=== PATIENT | male | born 1940 | race Caucasian/White ===

== ENCOUNTER 2018-03-08 09:59 | Observation (INO) | payer MEDICARE, BC ==
[~2018-03-08] VITALS: Ht 177.8 cm; Wt 109.8 kg
[2018-03-08] VITALS (10 sets, daily range): BP systolic 127–192; BP diastolic 75–103
--- NOTE | ~2018-03-08 | H ---
[address] [address] HISTORY AND PHYSICAL Name: MARBELLA TAPIA Room: [address] Ramses Guevara#: [id number] Admission: 03/08/18 Attend Phys: Luis De La Paz MD, Discharge: 03/09/18 Date of : 40 Report #: [id number] THIS REPORT FOR: //name// Please refer to the History and Physical performed in the physician's office. By: [facility]0Medical Records Staff DAVE /LICO
[~2018-03-08 09:59] MED LIST: ALBUTEROL2.5 MG/31 INH; ASPIRIN EC81 M1 PO; AUGMENTIN 875875 MG PO; AVODART0.5 MG PO; CARVEDILOL12.5 MG PO; COZAAR 50 MG TA50 M1 PO; COZAAR 50 MG TA50 MG PO; DOXYCYCLINE 10100 MG PO; ELIQUIS5 MG PO; FLONASE 0.05%50 MCG NASAL; FLOVENT HFA 2220 MC1 INH; LASIX 20 MG TAB20 MG PO; LOPRESSOR50 PO; MINIPRIN81 MG PO; PACERONE 200 M200 M1 PO; PLAVIX 75 MG TA75 M1 PO; PROAIR HFA8.5 GM INH; ROBAXIN 750 MG750 M1 PO; SPIRIVA INH; TAMSULOSIN HCL0.4 M1 PO; TAMSULOSIN HCL0.4 MG PO; TOPROL XL50 MG PO; VICODIN 5-3001 EACH PO; ZOCOR40 MG PO
[2018-03-08 10:42] LABS: HEMATOCRIT 41.7 % (42.0-52.0); HEMOGLOBIN 14.2 gm/dL (14.0-18.0); MCH 32.8 pg (26.0-34.0); MCHC 34.1 g/dL (28.0-37.0); MCV 96.1 fL (80.0-100.0); MPV 9.3 fl. (7.2-11.1); RBC 4.35 mil/uL (4.50-6.00); RDW-CV 13.9 % (10.5-14.5); WBC 7.4 thou/uL (4.0-11.0)
[2018-03-08 10:52] LABS: APTT 25.7 Seconds (25.0-31.3); INR 1.1; PROTIME 10.6 Seconds (9.20-11.50)
[2018-03-08 11:02] LABS: ANION GAP 7 mmol/L (7-16); BUN 13 mg/dL (7-18); CALCIUM 8.9 mg/dL (8.5-10.1); CHLORIDE 109 mmol/L (98-107); CO2 26 mmol/L (21-32); CREATININE 1.3 mg/dL (0.6-1.3); GLUCOSE 94 mg/dL (70-99); POTASSIUM 4.4 mmol/L (3.5-5.1); SODIUM 142 mmol/L (136-145)
[2018-03-08 11:08] LABS: ALBUMIN 3.7 g/dL (3.4-5.0); ALKALINE PHOSPHATASE 65 U/L (46-116); CHOLESTEROL 106 mg/dL (<200); HDL CHOLESTEROL 45 mg/dL (>40); LDL CHOLESTEROL 40 mg/dL (<100); SGOT 32 U/L (15-37); SGPT 43 U/L (30-65); TC:HDL 2.4 Ratio (Not establshd); TOTAL BILIRUBIN 0.9 mg/dL (<0.1-1.0); TOTAL PROTEIN 6.9 g/dL (6.4-8.2); TRIGLYCERIDE 108 mg/dL (<150); VLDL 22 mg/dL (<40)
[2018-03-08 11:11] LABS: SERUM ASSESSMENT Clear
--- NOTE | 2018-03-08 17:30 | EKG ---
[place] [address] ELECTROCARDIOGRAM REPORT Name: MARBELLA TAPIA Room: [facility]#: [id number] Admission: 03/08/18 Attend Phys: Luis De La Paz MD, Discharge: Date of : 40 Report #: [id number] THIS REPORT FOR: //name// [facility] Test Date: 2018-03-08 Test Time: 10:52:26 Pat Name: MARBELLA WILLIE Department: Room: Gender: Barker Peeler: SANDHYA : 1940 Requested By: Luis De La Paz Order Number: [id number] Osvaldo MD: Sanchez Zeng Measurements Intervals [place] Rate: 82 P: ID: QRS: 71 QRSD: 112 T: 50 QT: 428 QTc: 500 Interpretive Statements Atrial fibrillation Low voltage, precordial leads Borderline prolonged QT interval No previous ECG available for comparison Electronically Signed On 03-08-2018 17:29:55 CDT by Sanchez Zeng [email or web address] <ELECTRONICALLY SIGNED> By: Sanchez Zeng MD, [facility] 03/08/18 1729 1052 1052 Sanchez Zeng MD, FACC /EPI
[2018-03-09] VITALS (17 sets, daily range): BP systolic 102–140; BP diastolic 51–81
[2018-03-09 04:42] LABS: HEMATOCRIT 40.4 % (42.0-52.0); HEMOGLOBIN 13.8 gm/dL (14.0-18.0); MCHC 34.2 g/dL (28.0-37.0); MCV 96.6 fL (80.0-100.0); MPV 9.2 fl. (7.2-11.1); RBC 4.19 mil/uL (4.50-6.00); WBC 8.4 thou/uL (4.0-11.0)
[2018-03-09 05:25] LABS: ALBUMIN 3.3 g/dL (3.4-5.0); CALCIUM 8.9 mg/dL (8.5-10.1); CREATININE 1.3 mg/dL (0.6-1.3); POTASSIUM 5.1 mmol/L (3.5-5.1); TOTAL PROTEIN 5.9 g/dL (6.4-8.2); TROPONIN-I LEVEL 0.17 ng/mL (<0.06)
[2018-03-09] MEDS ORDERED: EFFIENT10 MG PO (10:33)
[2018-03-09] MEDS ORDERED: NITROGLYCERIN0.4 MG SUBLING (10:34)
[2018-03-09] MEDS ORDERED: CHILDREN'S ASPI81 M1 PO (10:49)
--- NOTE | 2018-03-09 16:11 | D ---
[address] [address] DISCHARGE SUMMARY Name: MARBELLA TAPIA Room: [address] Rams[place] Guevara#: [id number] Admission: 03/08/18 Attend Phys: Luis De La Paz MD, Discharge: 03/09/18 Date of : 40 Report #: [id number] THIS REPORT FOR: //name// CC: Luis Flores [place] DATE OF SERVICE: 03/09/2018 The patient is a pleasant 77-year-old male with known coronary artery disease, prior myocardial infarction, ischemic cardiomyopathy and an ICD in place. Approximately 6-8 weeks ago, he had a discharge from his defibrillator without particular provocation. He has noted increased dyspnea with exertion since that time, but no classic chest discomfort. He has underlying hypertension, hyperlipoproteinemia, weight excess and obstructive sleep apnea. In the context of the recent discharge and concerned about ischemic provocation, the patient underwent cardiac catheterization on 03/08/2018, and that study demonstrated 80% ostial left main coronary narrowing with 80% narrowing of the mid portion of the prominent, though nondominant circumflex. Right coronary artery had 50% proximal narrowing. Left ventricular function was moderately impaired with an estimated ejection fraction of 40% with apical akinesis. Given this data, and after explaining the options to the patient, we proceeded with percutaneous coronary intervention, deploying 1 drug-eluting stent in the mid circumflex and 2 at the ostial and proximal portion of the left main coronary artery with 0 and 10% residual narrowing at the respective sites following stent deployment. The patient did well post procedurally. Troponin ailyn inconsequentially to 0.17. Laboratory on 03/09, revealed sodium of 141, potassium of 5.1, BUN 13, creatinine 1.3, glucose 96. Hemoglobin 13.8, white blood cell count 8400 with 164,000 platelets. The patient ambulated in the hallways without difficulty. He was discharged to home in stable condition on 03/09/2018, on the following medications: Amiodarone 200 mg daily, aspirin 81 mg daily, fluticasone 1 spray in each nares daily, losartan 50 mg daily, metoprolol tartrate 50 mg daily, prasugrel or Effient 10 mg daily with a 60 mg loading dose given periprocedurally, simvastatin 40 mg at bedtime, and tamsulosin 0.4 mg daily. I will plan to see him next week in the office for followup status post stenting of the proximal left [place] [address] DISCHARGE SUMMARY Name: WILLIEBLANCOMARBELLA Olamide Room: [address] Rams[place] Guevara#: [id number] Admission: 03/08/18 Attend Phys: Luis De La Paz MD, Discharge: 03/09/18 Date of : 40 Report #: [id number] Thus, the patient is discharged to home on the above described medications with followup as iterated above. <ELECTRONICALLY SIGNED> By: Luis De La Paz MD, [facility] 03/09/18 1611 0932 1509John Fany De La Paz MD, [facility] /nt
--- NOTE | 2018-03-09 17:36 | EKG ---
[place] [address] ELECTROCARDIOGRAM REPORT Name: MARBELLA TAPIA Room: [address]#: [id number] Admission: 03/08/18 Attend Phys: Luis De La Paz MD, Discharge: 03/09/18 Date of : 40 Report #: [id number] THIS REPORT FOR: //name// [facility] Test Date: 2018-03-09 Test Time: 08:19:37 Pat Name: MARBELLA TAPIA Department: Room: [address] Gender: M Crisis Clinician: : 1940 Requested By: Luis De La Paz Order Number: [id number] Osvaldo MD: Luis De La Paz Measurements Intervals [place] Rate: 77 P: -60 CO: 157 QRS: 79 QRSD: 123 T: 58 QT: 457 QTc: 518 Interpretive Statements Sinus rhythm with frequent pac's Right bundle branch block. incomeplete Compared to ECG 03/08/2018 10:52:26 Right bundle-branch block now present Atrial fibrillation no longer present Electronically Signed On 03-09-2018 17:35:52 CDT by Luis De La Paz [email or web address] <ELECTRONICALLY SIGNED> By: Luis De La Paz MD, [facility] 03/09/18 1735 8 8 Luis De La Paz MD, [facility] /EPI
--- NOTE | 2018-03-15 16:39 | CARD ---
[address] [address] CARDIAC CATH REPORT Name: MARBELLA TAPIA Room: [address] Ramses Guevara#: [id number] Admission: 03/08/18 Attend Phys: Luis De La Paz MD, Discharge: 03/09/18 Date of : 40 Report #: [id number] THIS REPORT FOR: //name// APPROVED REPORT Study performed: 03/08/2018 15:36:17 Patient Details Patient Status: Out-Patient Room #: 001 The patient is a 77 year-old male Event Personnel Luis De La Paz Saturation Diver, Melanie Norris RN Financial Institution Vice President, Marisa Wheatley RTR Scrub, Janett Morton Monitor, Holly Terrazas RTR Monitor Procedures Performed Art Access - R femoral artery* Left Heart Cath w/or w/o Coronaries [id number] [facility] w/wo Plasty Single CIRC [id number] [address] [address] w/wo Plasty Single Left Main [id number] , Left Ventriculogram Indication Arrhythmia, Dyspnea Risk Factors Hypercholesterolemia, Hypertension Previous Procedures/Diagnoses Previous PCI, Previous CA Admission/Lab Medications/Medications given during procedure Aspirin, Platelet Aff. Inhib. Procedure Narrative The patient was brought electively to the Cardiac Catheterization Laboratory and was prepped and draped in a sterile manner. The right femoral was infiltrated with 2% Lidocaine subcutaneous anesthesia. A [place] 6 FR sheath was inserted into the right femoral artery. Coronary angiography was performed using coronary diagnostic catheters. The right coronary system was accessed and visualized with a Diagnostic 6fr JR 4 catheter. The left coronary system was accessed and visualized with a Diagnostic JL 5 5fr catheter. The left ventricle was accessed and visualized with a Diagnostic 6fr Pigtail catheter. Left ventricular/[place] [address] CARDIAC CATH REPORT Name: MARBELLA TAPIA Room: [address]#: [id number] Admission: 03/08/18 Attend Phys: Luis De La Paz MD, Discharge: 03/09/18 Date of : 40 Report #: [id number] catheter pullback. Left ventriculogram was performed in ROBERTS projection. Pre-demployment femoral angiogram was performed . Closure device was deployed with a 6 Fr Angioseal STS 6Fr. The patient tolerated the procedure well and there were no complications associated with the procedure. There was no hematoma. Intraoperative Conscious Sedation Sedation start time: 15:50 Case end Time: 17:57 Fentanyl 125 mcg Versed 5 mg Fluoro Time: 29.0 minutes Dose: DAP 322573 cGycm2 154 mGy Contrast Type and Amount: Visipaque 600 ml Hemodynamics The aortic pressure is 180/87 mmHg with a mean of mmHg. The left ventricular pressure is 164/7 mmHg with a mean of mmHg. The left ventricular end diastolic pressure is 16 mmHg. There was no gradient across the aortic valve upon pullback. PCI Technique Lesion Percutaneous coronary intervention was performed on the mid circumflex artery segment. The lesion stenosis prior to intervention was 90% with TYRELL 3 flow. A 6fr JL 3.5 SH Guide Catheter was used to engage the LCA ostium. A IG: ProwaterFlex 180CM Interventional Guidewire was used to cross the lesion. BALLOON DILATION A Balloon catheter Trek RX 2.5 X 12 was inserted and inflated up to 10.00atm for 9seconds. STENT DEPLOYMENT A drug-eluting stent Xience Alpine RX 2.5X15 was inserted and inflated up to 10.00atm for 8seconds. Additional Inflation: 12.00atm for 7seconds. Final angiography reveals 0 % stenosis with TYRELL 3 flow. PCI Technique Lesion 2 Percutaneous Coronary Intervention was performed on the proximal left main coronary artery. The lesion stenosis prior to intervention was 80% with TYRELL 3 flow. Stent Deployment A drug-eluting stent Xience Alpine RX 3.5X8 [place] [address] CARDIAC CATH REPORT Name: MARBELLA TAPIA Room: [address] Ramses M.RAnaid#: [id number] Admission: 03/08/18 Attend Phys: Luis De La Paz MD, Discharge: 03/09/18 Date of : 40 Report #: [id number] up to 14.00atm for 9seconds. Additional Inflation: 15.00atm for 5seconds. Post Stent Deployment Balloon Dilation A Balloon catheter NC Trek RX 3.25X8 was inserted and inflated up to 12.00atm for 8seconds. Additional Inflation: 16.00atm for 7seconds. Final angiography reveals 10 % stenosis with TYRELL 3 flow. PCI Technique Lesion 3 Percutaneous Coronary Intervention was performed on the left main coronary artery. Stent Deployment A drug-eluting stent Xience Alpine RX 3.5X8 was inserted and inflated up to 12atm for 6seconds. Post Stent Deployment Balloon Dilation A Balloon catheter NC Trek RX 3.5 X 8 was inserted and inflated up to 16atm for 8seconds. Additional Inflation: 16atm for 5seconds. Additional Inflation: 17atm for 6seconds. Conclusion #1 significant coronary artery disease characterized by the following: A 80% proximal left main coronary artery stenosis B 50% mid LAD narrowing C prominent though nondominant circumflex with 90% mid vessel stenosis D 50% proximal narrowing of the prominent dominant right coronary artery #2 moderate impairment in global left ventricular systolic function, estimated ejection fraction 35% with apical akinesis #3 moderate systemic systolic hypertension with mild elevation of left ventricular end-diastolic pressure at rest #4 successful percutaneous coronary intervention with deployment of a drug-eluting stent at site of 90% mid circumflex stenosis with 0% residual narrowing and TYRELL-3 [place] [address] CARDIAC CATH REPORT Name: MARBELLA TAPIA Room: [address] Ramses Guevara#: [id number] Admission: 03/08/18 Attend Phys: Luis De La Paz MD, Discharge: 03/09/18 Date of : 40 Report #: [id number] #5 successful percutaneous coronary intervention with deployment of 2 drug-eluting stents at the site of 80% proximal left main coronary stenosis with 10% residual narrowing and TYRELL-3 flow to the distal circulation Recommendations Cardiac Risk Reduction Program Aggressive Medical Therapy Medications Administered Aspirin (any) Prasugrel Diagnostic Cath Approved by: Luis De La Paz MD Date/Time: 03/15/2018 16:36:42 <ELECTRONICALLY SIGNED> By: Luis De La Paz MD, [facility] 03/15/18 1639 1639 1639Luis De La Paz MD, FACC /INF
[2018-06-22] MEDS ORDERED: TOPROL XL25 MG PO (14:12)
[2018-06-22] MEDS ORDERED: BEVESPI AEROS10.7 GM INH (14:16)
[2018-06-22] MEDS ORDERED: ALBUTEROL2.5 MG/31 INH (14:17)
== END 2018-03-09 14:40 | disposition home or self-care (01) ==
LOC: M.CL 09:59 → M.ICU 18:14 → M.TBA-ER 18:14 → M.ICU 18:14
PROVIDERS: ADMIT Internal Medicine
DX: I25.10 Atherosclerotic heart disease of native coronary artery without angina pectoris (principal); I25.5 Ischemic cardiomyopathy; I11.0 Hypertensive heart disease with heart failure; I50.22 Chronic systolic (congestive) heart failure; I48.0 Paroxysmal atrial fibrillation; I47.2 Ventricular tachycardia; E78.5 Hyperlipidemia, unspecified; J43.9 Emphysema, unspecified; E78.00 Pure hypercholesterolemia, unspecified; G47.33 Obstructive sleep apnea (adult) (pediatric); I25.2 Old myocardial infarction; Z99.89 Dependence on other enabling machines and devices; Z87.891 Personal history of nicotine dependence; Z95.810 Presence of automatic (implantable) cardiac defibrillator; Z82.49 Family history of ischemic heart disease and other diseases of the circulatory system

== ENCOUNTER → 2018-06-27 | Outpatient (CLI) | payer MEDICARE, BC ==
[2018-06-27] VITALS (9 sets, daily range): BP systolic 106–142; BP diastolic 62–91
[~2018-06-27] VITALS: Ht 177.8 cm; Wt 103.0 kg
[~2018-06-27] MED LIST changes: +BEVESPI AEROS10.7 GM INH; +CHILDREN'S ASPI81 M1 PO; +EFFIENT10 MG PO; +NITROGLYCERIN0.4 MG SUBLING; +TOPROL XL25 MG PO
[2018-06-27 08:17] LABS: HEMATOCRIT 42.4 % (42.0-52.0); HEMOGLOBIN 14.6 gm/dL (14.0-18.0); MCH 32.8 pg (26.0-34.0); MCHC 34.5 g/dL (28.0-37.0); MPV 8.8 fl. (7.2-11.1); RBC 4.46 mil/uL (4.50-6.00); RDW-CV 17.1 % (10.5-14.5); WBC 7.9 thou/uL (4.0-11.0)
[2018-06-27 08:30] LABS: ANION GAP 9 mmol/L (7-16); BUN 14 mg/dL (7-18); CALCIUM 9.1 mg/dL (8.5-10.1); CHLORIDE 106 mmol/L (98-107); CO2 25 mmol/L (21-32); CREATININE 1.3 mg/dL (0.6-1.3); GLUCOSE 104 mg/dL (70-99); POTASSIUM 4.1 mmol/L (3.5-5.1); SODIUM 140 mmol/L (136-145)
[2018-06-27 08:33] LABS: APTT 26.6 Seconds (25.0-31.3); PROTIME 10.7 Seconds (9.20-11.50)
[2018-06-27 08:35] LABS: ALBUMIN 3.7 g/dL (3.4-5.0); ALKALINE PHOSPHATASE 76 U/L (46-116); CHOLESTEROL 169 mg/dL (<200); HDL CHOLESTEROL 41 mg/dL (>40); LDL CHOLESTEROL 89 mg/dL (<100); SGOT 24 U/L (15-37); SGPT 26 U/L (30-65); TC:HDL 4.1 Ratio (Not establshd); TOTAL BILIRUBIN 0.8 mg/dL (<0.1-1.0); TOTAL PROTEIN 6.9 g/dL (6.4-8.2); TRIGLYCERIDE 196 mg/dL (<150); VLDL 39 mg/dL (<40)
[2018-06-27 08:36] LABS: SERUM ASSESSMENT Clear
--- NOTE | 2018-06-27 16:39 | EKG ---
[place] [address] ELECTROCARDIOGRAM REPORT Name: MARBELLA TAPIA Room: [address]#: [id number] Admission: 06/27/18 Attend Phys: Luis De La Paz MD, Discharge: Date of : 40 Report #: [id number] THIS REPORT FOR: //name// [facility] Test Date: 2018-06-27 Test Time: 08:10:02 Pat Name: MARBELLA TAPIA Department: Room: Gender: Ambulance Officer: [facility] : 1940 Requested By: Luis De La Paz Order Number: [id number] Osvaldo MD: Luis De La Paz Measurements Intervals [place] Rate: 75 P: 9 MS: 197 QRS: 67 QRSD: 117 T: 65 QT: 425 QTc: 475 Interpretive Statements Sinus rhythm Atrial premature complex Nonspecific intraventricular conduction delay Compared to ECG 03/09/2018 08:19:37 Atrial premature complex(es) now present Intraventricular conduction delay now present Right bundle-branch block no longer present Electronically Signed On 06-27-2018 16:38:55 SHAFT TENDER by Luis De La Paz [email or web address] <ELECTRONICALLY SIGNED> By: Luis De La Paz MD, FACC 06/27/18 1638 0810 0810 Luis De La Paz MD, [facility] /EPI
--- NOTE | 2018-06-28 14:25 | CARD ---
[address] [address] CARDIAC CATH REPORT Name: MARBELLA TAPIA Room: [facility] ANGUS Guevara#: [id number] Admission: 06/27/18 Attend Phys: Luis De La Paz MD, Discharge: Date of : 40 Report #: [id number] THIS REPORT FOR: //name// APPROVED REPORT Study performed: 06/27/2018 07:39:26 Patient Details Patient Status: Out-Patient Room #: The patient is a 77 year-old male Event Personnel Luis De La Paz Costume Rental Clerk, Rosemarie Montes De Oca RN French Polisher, Yefri Moseley (R) Monitor, Michael Patiño Scrub Procedures Performed Left Heart Cath w/or w/o Coronaries Indication Chest pain Risk Factors Hypercholesterolemia, Hypertension Previous Procedures/Diagnoses Previous PCI Procedure Narrative The patient was brought electively to the Cardiac Catheterization Laboratory and was prepped and draped in a sterile manner. The right femoral was infiltrated with 2% Lidocaine subcutaneous anesthesia. A Sl[place] 6 FR sheath was inserted into the right femoral artery. Coronary angiography was performed using coronary diagnostic catheters. The right coronary system was accessed and visualized with a Diagnostic JR4 catheter. The left coronary system was accessed and visualized with a Diagnostic JL 4 catheter. The left ventricle was accessed and visualized with a Diagnostic Straight Pigtail catheter. Left ventricular/Aortic Valve gradient assessed via catheter pullback. Left ventriculogram was performed in ROBERTS projection. Closure device was deployed with a Fr Mynx 6Fr/7Fr. The patient tolerated the procedure well and there were no complications associated with the procedure. There was no hematoma[place] [address] CARDIAC CATH REPORT Name: MARBELLA TAPIA Room: [facility]#: [id number] Admission: 06/27/18 Attend Phys: Luis De La Paz MD, Discharge: Date of : 40 Report #: [id number] Sedation start time: 10:06 Case end Time: 10:34 Fentanyl 25 mcg Versed 1.0 mg Fluoro Time: 3.4 minutes Dose: DAP 16931 cGycm2 792 mGy Contrast Type and Amount: Visipaque 100 ml Diagnostic Cath Left Main Widely patent left main coronary stent with 0% narrowing LAD 30% proximal and mid vessel narrowing, the latter just prior to a prominent second septal security supervisor with 30% narrowing just distal to that septal security supervisor Circumflex 40% proximal and mid vessel narrowing Right Coronary Large dominant vessel with tortuosity and 40% proximal narrowing Left Ventriculography The left ventricle is normal in size with contractility. The left ventricular ejection fraction is estimated to be 45%. Left ventricular wall motion abnormalities are present. There is no mitral insufficiency. Apical akinesis is noted on left ventriculography Hemodynamics The aortic pressure is 135/69 mmHg with a mean of 96 mmHg. The left ventricular pressure is 125/1 mmHg with a mean of mmHg. The left ventricular end diastolic pressure is 10 mmHg. There was no gradient across the aortic valve upon pullback. Conclusion #1 coronary artery disease characterized by the following: A widely patent left main coronary artery stent B 30% proximal and mid LAD narrowing with 30% narrowing just beyond the second septal security supervisor C nondominant circumflex with 40% proximal and mid vessel narrowing with widely patent stents at 2 sites D dominant right coronary artery with tortuosity and 40% proximal narrowing #2 normal left[place] [address] CARDIAC CATH REPORT Name: MARBELLA TAPIA Room: [facility]#: [id number] Admission: 06/27/18 Attend Phys: Luis De La Paz MD, Discharge: Date of : 40 Report #: [id number] #3 mild impairment in global left ventricular systolic function, estimated ejection fraction being 45% with apical akinesis noted Recommendations Cardiac Risk Reduction Program Aggressive Medical Therapy Diagnostic Cath Approved by: Luis De La Paz MD Date/Time: 06/28/2018 14:24:38 <ELECTRONICALLY SIGNED> By: Luis De La Paz MD, [facility] 06/28/18 1425 1425 1425John Fany De La Paz MD, FACC /INF
== END | disposition home or self-care (01) ==
LOC: M.CL 06:28 → M.TBA-CV 10:50 → M.CL 10:50
PROVIDERS: Internal Medicine
DX: I25.10 Atherosclerotic heart disease of native coronary artery without angina pectoris (principal); I10 Essential (primary) hypertension; E78.00 Pure hypercholesterolemia, unspecified; E78.5 Hyperlipidemia, unspecified; I25.2 Old myocardial infarction; J44.9 Chronic obstructive pulmonary disease, unspecified; G47.33 Obstructive sleep apnea (adult) (pediatric); I48.91 Unspecified atrial fibrillation; Z95.5 Presence of coronary angioplasty implant and graft; Z90.49 Acquired absence of other specified parts of digestive tract; Z98.890 Other specified postprocedural states; Z79.899 Other long term (current) drug therapy; Z87.891 Personal history of nicotine dependence; Z88.8 Allergy status to other drugs, medicaments and biological substances; Z79.82 Long term (current) use of aspirin; Z79.01 Long term (current) use of anticoagulants

== ENCOUNTER → 2019-05-09 | Outpatient (CLI) | payer MEDICARE, BC ==
[~2019-05-09] VITALS: Ht 177.8 cm; Wt 103.6 kg
[2019-05-09] VITALS (7 sets, daily range): BP systolic 123–157; BP diastolic 83–107
[~2019-05-09] MED LIST changes: +ASPIR 8181 MG PO; +COZAAR 25 MG TA25 M1 PO; +DORYX MPC120 MG PO; +FLOMAX0.4 MG PO; +IPRAT-ALBUT 0.5-3 ML INH; +PREDNISONE 20 M20 MG PO; +PROAIR RESPICL90 MCG INH; +STIOLTO RESPIMAT4 GM INH
[2019-05-09 11:10] LABS: HEMATOCRIT 45.4 % (42.0-52.0); HEMOGLOBIN 15.8 gm/dL (14.0-18.0); MCH 33.5 pg (26.0-34.0); MCHC 34.7 g/dL (28.0-37.0); MCV 96.6 fL (80.0-100.0); MPV 8.7 fl. (7.2-11.1); RBC 4.7 mil/uL (4.50-6.00); RDW-CV 15.1 % (10.5-14.5); WBC 8.6 thou/uL (4.0-11.0)
[2019-05-09 11:17] LABS: APTT 25.7 Seconds (25.0-31.3); PROTIME 10.7 Seconds (9.20-11.50)
[2019-05-09 11:18] LABS: ANION GAP 9 mmol/L (7-16); BUN 16 mg/dL (7-18); CALCIUM 8.9 mg/dL (8.5-10.1); CHLORIDE 106 mmol/L (98-107); CO2 27 mmol/L (21-32); CREATININE 1.5 mg/dL (0.6-1.3); GLUCOSE 98 mg/dL (70-99); POTASSIUM 3.9 mmol/L (3.5-5.1); SODIUM 142 mmol/L (136-145)
[2019-05-09 11:29] LABS: ALBUMIN 3.8 g/dL (3.4-5.0); ALKALINE PHOSPHATASE 100 U/L (46-116); CHOLESTEROL 161 mg/dL (<200); HDL CHOLESTEROL 46 mg/dL (>40); LDL CHOLESTEROL 87 mg/dL (<100); SGOT 23 U/L (15-37); SGPT 33 U/L (30-65); TC:HDL 3.5 Ratio (Not establshd); TOTAL BILIRUBIN 0.9 mg/dL (<0.1-1.0); TRIGLYCERIDE 142 mg/dL (<150); VLDL 28 mg/dL (<40)
[2019-05-09 11:30] LABS: SERUM ASSESSMENT Clear
--- NOTE | 2019-05-09 16:55 | EKG ---
[place] [address] ELECTROCARDIOGRAM REPORT Name: MARBELLA TAPIA Room: [facility]#: [id number] Admission: 05/09/19 Attend Phys: Luis De La Paz MD, Discharge: Date of : 40 Report #: [id number] THIS REPORT FOR: //name// [facility] Test Date: 2019-05-09 Test Time: 11:14:38 Pat Name: MARBELLA TAPIA Department: Room: Gender: Marine Steam Fitter: : 1940 Requested By: Sanchez Zeng Order Number: [id number] Osvaldo MD: Sanchez Zeng Measurements Intervals [place] Rate: 91 P: -16 AK: 177 QRS: 74 QRSD: 110 T: 56 QT: 391 QTc: 482 Interpretive Statements Sinus rhythm Atrial premature complexes Abnormal R-wave progression, early transition Compared to ECG 06/27/2018 08:10:02 Intraventricular conduction delay no longer present Electronically Signed On 05-09-2019 16:55:14 CDT by Sanchez Zeng [email or web address] <ELECTRONICALLY SIGNED> By: Sanchez Zeng MD, FACC 05/09/19 7968 1114 1114 Sanchez Zeng MD, [facility] /EPI
--- NOTE | 2019-05-10 13:19 | CARD ---
[address] [address] CARDIAC CATH REPORT Name: WILLIEMARBELLASTACIA SMART Room: [facility] Paola#: [id number] Admission: 05/09/19 Attend Phys: Luis De La Paz MD, Discharge: Date of : 40 Report #: [id number] THIS REPORT FOR: //name// APPROVED REPORT Study performed: 05/09/2019 13:50:03 Patient Details The patient is a 78 year-old male Event Personnel Luis De La Paz Cnc Wood Lathe Operator, Rosemarie Montes De Oca RN Mask Designer, Carlos Araujo BUSINESS CONSULTANT Scrub, Kelly Mcdonald RTR Monitor Procedures Performed Art Access - R femoral artery Left Heart Cath w/or w/o Coronaries C Hemostasis w/ Mynx Indication Dyspnea, Chest pain Risk Factors Hypercholesterolemia, Hypertension Previous Procedures/Diagnoses Previous PCI, Previous DC Procedure Narrative The patient was brought electively to the Cardiac Catheterization Laboratory and was prepped and draped in a sterile manner. The right femoral was infiltrated with 2% Lidocaine subcutaneous anesthesia. A [place] 6 FR sheath was inserted into the right femoral artery. Coronary angiography was performed using coronary diagnostic catheters. The right coronary system was accessed and visualized with a JR 4 6F catheter. The left coronary system was accessed and visualized with a JL 4 6F catheter. The left ventricle was accessed and visualized with a PIG 6F catheter. Left ventricular/Aortic Valve gradient assessed via catheter pullback. Left ventriculogram was performed in ROBERTS projection. Pre-demployment femoral angiogram was performed . Closure device was deployed with a Fr MynxGrip 6/7F. The patient tolerated the procedure well and there were no complications associated with the procedure. Intraoperative Conscious Sedation Sedation start time: 4 Case end Time: [place] [address] CARDIAC CATH REPORT Name: MARBELLA TAPIA Room: [facility]#: [id number] Admission: 05/09/19 Attend Phys: Luis De La Paz MD, Discharge: Date of : 40 Report #: [id number] 1522 Fentanyl 25 mcg Versed 1 mg Dose: 1083 mGy Contrast Type and Amount: Visipaque 125 ml Diagnostic Cath Left Main 0% narrowing with widely patent proximal stent LAD 30% proximal 50% tubular mid LAD narrowing Circumflex 30% proximal and mid vessel narrowing with widely patent mid vessel stent Right Coronary Large dominant vessel with 30% proximal narrowing Left Ventriculography The left ventricle is normal in size with contractility. The left ventricular ejection fraction is estimated to be 45%. Left ventricular wall motion abnormalities are present. There is no mitral insufficiency. Apical akinesis is noted Hemodynamics The aortic pressure is 120/52 mmHg with a mean of 80 mmHg. The left ventricular pressure is 151/-2 mmHg with a mean of mmHg. The left ventricular end diastolic pressure is 22 mmHg. Conclusion #1 Coronary artery disease characterized by the following: A widely patent left main coronary artery stent with 0% narrowing B 30% proximal 50% mid LAD narrowing C 30% proximal and 30% mid circumflex proximal narrowing, this being a nondominant vessel D dominant right coronary artery with 30% proximal narrowing #2 mild impairment in global left ventricular systolic function estimate ejection fraction of 45% with apical akinesis #3 moderate elevation of left ventricular end-diastolic pressure at rest Recommendations Card[place] [address] CARDIAC CATH REPORT Name: MARBELLA TAPIA Room: [facility]#: [id number] Admission: 05/09/19 Attend Phys: Luis De La Paz MD, Discharge: Date of : 40 Report #: [id number] Aggressive Medical Therapy Diagnostic Cath Approved by: Luis De La Paz MD Date/Time: 05/10/2019 13:18:37 <ELECTRONICALLY SIGNED> By: Luis De La Paz MD, FACC 05/10/19 1319 1319Luis De La Paz MD, FACC /INF
== END | disposition home or self-care (01) ==
LOC: M.CL 10:24
PROVIDERS: Internal Medicine Cardiovascular Disease
DX: R07.9 Chest pain, unspecified (principal); I25.10 Atherosclerotic heart disease of native coronary artery without angina pectoris; I10 Essential (primary) hypertension; R06.09 Other forms of dyspnea; I25.2 Old myocardial infarction; E78.00 Pure hypercholesterolemia, unspecified; G47.30 Sleep apnea, unspecified; I48.91 Unspecified atrial fibrillation; J44.9 Chronic obstructive pulmonary disease, unspecified; Z98.890 Other specified postprocedural states; Z95.5 Presence of coronary angioplasty implant and graft; Z87.891 Personal history of nicotine dependence; Z88.0 Allergy status to penicillin; Z79.899 Other long term (current) drug therapy; Z79.82 Long term (current) use of aspirin

== ENCOUNTER 2019-05-25 17:49 | Inpatient (IN) | payer MEDICARE, BC ==
[~2019-05-25] VITALS: Ht 177.8 cm; Wt 103.9 kg
[~2019-05-25 17:49] MED LIST changes: -DORYX MPC120 MG PO; -PREDNISONE 20 M20 MG PO
[2019-05-25 18:00] VITALS: BP 98/64
[2019-05-25] MEDS ORDERED: DORYX MPC120 MG PO (18:23)
[2019-05-25 18:36] LABS: HEMATOCRIT 45.1 % (42.0-52.0); HEMOGLOBIN 15.5 gm/dL (14.0-18.0); MCH 33.5 pg (26.0-34.0); MCHC 34.4 g/dL (28.0-37.0); MCV 97.5 fL (80.0-100.0); MPV 8.6 fl. (7.2-11.1); NUCLEATED RBCS 0 /100WBC; PLATELET COUNT* 305 thou/uL (150-400); RBC 4.63 mil/uL (4.50-6.00); RDW-CV 15.5 % (10.5-14.5); WBC 15.9 thou/uL (4.0-11.0)
[2019-05-25 18:47] LABS: APTT 23.6 Seconds (25.0-31.3); PROTIME 10.7 Seconds (9.20-11.50)
[2019-05-25 18:59] LABS: CALCIUM 9.1 mg/dL (8.5-10.1); CREATININE 1.7 mg/dL (0.6-1.3); POTASSIUM 4.2 mmol/L (3.5-5.1)
[2019-05-25 19:02] LABS: ABSOLUTE LYMPHOCYTES 2.1 thou/uL (0.8-5.3); ABSOLUTE MONOCYTES 0.5 thou/uL (0.0-1.2); ABSOLUTE NEUTROPHILS 13.4 thou/uL (1.6-8.1)
[2019-05-25 19:03] LABS: PLATELET ESTIMATE ADEQUATE
[2019-05-25 19:15] LABS: ALBUMIN 3.7 g/dL (3.4-5.0); CK-MB MASS 6.8 ng/mL (<0.5-3.6); MAGNESIUM 2.2 mg/dL (1.8-2.4); TOTAL BILIRUBIN 0.5 mg/dL (<0.1-1.0); TOTAL PROTEIN 6.8 g/dL (6.4-8.2)
[2019-05-25 22:00] VITALS: BP 108/61
[2019-05-25 22:10] VITALS: BP 136/65
--- NOTE | 2019-05-25 22:30 | NUR ---
RECEIVED REPORT FROM ER AND ADMITTED TO ROOM 214 AT 2205. WITH PT. PT VERY [place] BUT ABLE TO COMMUNICATE WITH DIRECT VISION AND SLOW SPEECH. PT SOA, O2 ON AT 2L/NC, LUNG SOUNDS WHEEZING, HOB ELEVATED. IV CARDIZEM INFUSING WITH TELEMETRY SHOWING A-FIB, RATE OF 80, SEE ADMISSION ASSESSMENT AND HX. WILL CONT TO MONITOR AND ASSIST NEEDED.
[2019-05-26] VITALS (8 sets, daily range): BP systolic 112–144; BP diastolic 54–79
--- NOTE | 2019-05-26 06:30 | NUR ---
AWAKE MOST OF NIGHT. CARDIZEM CONT AT 10 MG/HR WITH HR VARIES 58-90 WITH OCC SINUS BEATS. VERY SOA WITH ANY ACTIVITY. VOIDING DK URINE WITHOUT DIFFICULTY. HOUR ROUNDING OBSERVED.
[2019-05-26 11:06] LABS: CALCIUM 8.8 mg/dL (8.5-10.1); CREATININE 1.3 mg/dL (0.6-1.3); MAGNESIUM 2.3 mg/dL (1.8-2.4); POTASSIUM 4.4 mmol/L (3.5-5.1)
--- NOTE | 2019-05-26 16:22 | NUR ---
Pt is A&O. Resides at home with his . Independent and active. Sleeps with a cpap, provided through [facility] [employer], no other DME. No hx of HH. No hx of SNF. Hx of cardiac rehab in [place]. Goal is home at ok, Pt anticipates dc tomorrow. Following.
--- NOTE | 2019-05-26 18:08 | NUR ---
VSS, ASSUMED CARE IN THE AM, ASSESSMENT PERFORMED AND CHARTED, FALL PRECAUTIONS IN PLACE AND CALL LIGHT IN REACH, PT IS A&O4 AND UP AD ISAIAS, ON 2L NC AND IS TRACING AFIB/ SA ON THE MONITOR, PT DENIES ANY PAIN AND HIS GOAL IS TO IMPROVE BREATHING, WORK WITH RT AND SIT UP IN CHAIR, HOURLY ROUNDS COMPLETED AND WILL FOLLOW WITH PLAN OF CARE.
--- NOTE | 2019-05-26 18:23 | EKG ---
[place] [address] ELECTROCARDIOGRAM REPORT Name: MARBELLA TAPIA Room: [address] ADM IN [facility].#: [id number] Admission: 05/25/19 Attend Phys: Olamide Mary Discharge: Date of : 40 Report #: [id number] THIS REPORT FOR: //name// [facility] ED Test Date: 2019-05-25 Test Time: 18:06:41 Pat Name: MARBELLA TAPIA Department: Room: [facility] Gender: M Sole Splitter: EV : 1940 Requested By: Maverick Kate Order Number: [id number] MD: Sanchez Zeng Measurements Intervals [place] Rate: 174 P: 0 [place]: QRS: 110 QRSD: 111 T: 47 QT: 289 QTc: 492 Interpretive Statements Supraventricular tachycardia Right axis deviation ST depression, probably rate related Compared to ECG 05/09/2019 11:14:38 Right-axis deviation now present ST (T wave) deviation now present Sinus rhythm no longer present Atrial premature complex(es) no longer present Electronically Signed On 05-26-2019 18:23:27 CDT by Sanchez Zeng [email or web address] <ELECTRONICALLY SIGNED> By: Sanchez Zeng MD, FACC 05/26/19 1823 180 180 Sanchez Zeng MD, FACC /EPI
[2019-05-27 00:14] VITALS: BP 137/60
[2019-05-27 04:09] VITALS: BP 144/91
--- NOTE | 2019-05-27 07:09 | NUR ---
SLEPT WELL. SOB WITH ACTIVITY WHEN UP TO BR, O2 ON. TELEMETRY CONT TO SHOW SA VS SR WITH FREQ PAC, REMAINED AT BEDSIDE. NO CHANGE IN ASSESSMENT. HS GOALS OF REST AND SAFETY ACHIEVED. HOURLY ROUNDING OBSERVED.
[2019-05-27 08:00] VITALS: BP 168/85
--- NOTE | 2019-05-27 09:14 | NUR ---
VSS, ASSUMED CARE IN THE AM, ASSESSMENT PERFORMED AND CHARTED, FALL PRECAUTIONS IN PLACE AND CALL LIGHT IN REACH, PT IS A&O4 [place], TRACING SR WITH PAC AND SOMETIMES AFIB ON THE MONITOR, HE GETS UP AD ISAIAS, WAS ON 2L NC THIS AM BUT HAS MOVED TO RA O2 AT THIS TIME, PT GOAL IS TO IMPROVE BREATHING AND ACTIVITY, WILL FOLLOW WITH PLAN OF CARE AND HOURLY ROUNDS.
[2019-05-27] MEDS ORDERED: IPRAT-ALBUT 0.5-3 ML INH (10:49)
[2019-05-27 11:01] VITALS: BP 168/85
[2019-05-27] MEDS ORDERED: PREDNISONE 20 M20 MG PO (11:02)
[2019-05-27 11:28] VITALS: BP 168/85
--- NOTE | 2019-05-28 13:04 | CON ---
[address] [address] CONSULTATION Name: MARBELLA TAPIA Room: [address] IN .R.#: [id number] Admission: 05/25/19 Attend Phys: Olamide Mary Discharge: 05/27/19 Date of : 40 Report #: [id number] THIS REPORT FOR: //name// CC: Mark Hardy DATE OF SERVICE: 05/27/2019 CARDIOLOGY CONSULTATION HISTORY OF PRESENT ILLNESS: The patient is a pleasant 78-year-old male with known coronary artery disease, ischemic cardiomyopathy, and implantable cardioverter defibrillator in that context. He has severe underlying chronic obstructive pulmonary disease with intermittent atrial fibrillation. He has been on amiodarone pharmacoprophylaxis with intermittent bouts of atrial fibrillation despite that therapy. There is underlying hypertension and he has a history of prior coronary stenting. Confluent cardiac regimen has included losartan 50 mg daily, amiodarone 200 mg daily, Toprol-XL 25 mg daily, aspirin 81 mg daily, Effient 10 mg daily, and p.r.n. sublingual nitroglycerin. PAST MEDICAL HISTORY: Remarkable for hypertension, ischemic cardiomyopathy, and chronic obstructive pulmonary disease. SOCIAL HISTORY: The patient is with a significant prior cigarette smoking history. PHYSICAL EXAMINATION: GENERAL: Reveals an overweight elderly male, somewhat dyspneic and tachypneic. VITAL SIGNS: Blood pressure is 140/85, pulse rate is 80 and regular, and respirations are 18 per minute. NECK: Jugular venous pressure is normal. CHEST: Examination reveals scattered rhonchi and expiratory wheezing. CARDIAC: Reveals a regular rhythm with occasional extrasystoles with the rhythm is no longer irregularly irregular. ABDOMEN: Mildly obese. EXTREMITIES: Without edema and satisfactorily perfused. DIAGNOSTIC STUDIES: Initial rhythm strips on admission demonstrated atrial fibrillation with a tachycardic response and the patient had firing of his implantable cardioverter defibrillator prior to admission. Review of the device demonstrated atrial fibrillation with rapid rates exceeding threshold with subsequent firing of the implantable cardioverter [place]ibrill[place] [address] CONSULTATION Name: MARBELLA TAPIA Room: [address]#: [id number] Admission: 05/25/19 Attend Phys: Olamide Mary Discharge: 05/27/19 Date of : 40 Report #: [id number] IMPRESSION: 1. Recurrent atrial fibrillation with tachycardic response triggering firing of his implantable cardioverter defibrillator. 2. Coronary artery disease. 3. Ischemic cardiomyopathy. 4. Status post percutaneous coronary intervention. 5. Hypertension. 6. Severe chronic obstructive pulmonary disease. RECOMMENDATIONS: Concur with the present approach with intravenous Cardizem modulating his rate. After discontinuation of same with better respiratory status, he remains in sinus rhythm at this point with occasional premature atrial contractions but has not had recurrence of the atrial fibrillation. I would continue current antihypertensive, antiarrhythmic, and antiplatelet therapy as well as nitrates if required. I think the patient is stable at this juncture and can be discharged to home with followup with Pulmonary and myself. <ELECTRONICALLY SIGNED> By: Luis De La Paz MD, FACC 05/28/19 1304 1100 [id number] De La Paz MD, FACC /nt
== END 2019-05-27 12:25 | disposition home or self-care (01) | DRG 193 ==
LOC: M.ERS 17:49 → M.TBA-ER 19:08 → M.2W 19:08
PROVIDERS: Emergency Medicine; Internal Medicine; ADMIT Internal Medicine
DX: J18.9 Pneumonia, unspecified organism (principal); J96.01 Acute respiratory failure with hypoxia; J44.1 Chronic obstructive pulmonary disease with (acute) exacerbation; I13.0 Hypertensive heart and chronic kidney disease with heart failure and stage 1 through stage 4 chronic kidney disease, or unspecified chronic kidney disease; I50.42 Chronic combined systolic (congestive) and diastolic (congestive) heart failure; J44.0 Chronic obstructive pulmonary disease with (acute) lower respiratory infection; N39.0 Urinary tract infection, site not specified; R65.10 Systemic inflammatory response syndrome (SIRS) of non-infectious origin without acute organ dysfunction; I48.91 Unspecified atrial fibrillation; I25.10 Atherosclerotic heart disease of native coronary artery without angina pectoris; I25.5 Ischemic cardiomyopathy; E78.00 Pure hypercholesterolemia, unspecified; B97.89 Other viral agents as the cause of diseases classified elsewhere; E66.9 Obesity, unspecified; E78.5 Hyperlipidemia, unspecified; N18.3 Chronic kidney disease, stage 3 (moderate); G47.33 Obstructive sleep apnea (adult) (pediatric); I25.2 Old myocardial infarction; Z95.5 Presence of coronary angioplasty implant and graft; Z79.82 Long term (current) use of aspirin; Z90.49 Acquired absence of other specified parts of digestive tract; Z95.810 Presence of automatic (implantable) cardiac defibrillator; Z88.1 Allergy status to other antibiotic agents; Z87.891 Personal history of nicotine dependence; Z68.32 Body mass index [BMI] 32.0-32.9, adult

== ENCOUNTER 2020-12-06 22:20 | Inpatient (IN) | payer MEDICARE, BC ==
[~2020-12-06] VITALS: Ht 177.8 cm; Wt 93.0 kg
[~2020-12-06 22:20] MED LIST changes: +DORYX MPC120 MG PO; +PREDNISONE 20 M20 MG PO
[2020-12-07 00:46] LABS: HEMATOCRIT 37.1 % (42.0-52.0); HEMOGLOBIN 12.8 gm/dL (14.0-18.0); MCHC 34.4 g/dL (28.0-37.0); MPV 8.3 fl. (7.2-11.1); RBC 3.87 mil/uL (4.50-6.00); RDW-CV 14.9 % (10.5-14.5); WBC 8.5 thou/uL (4.0-11.0)
[2020-12-07 00:53] LABS: CALCIUM 8.7 mg/dL (8.5-10.1); CREATININE 1.4 mg/dL (0.6-1.3); POTASSIUM 4.3 mmol/L (3.5-5.1)
[2020-12-07 00:58] LABS: ALBUMIN 3.3 g/dL (3.4-5.0); TOTAL BILIRUBIN 0.8 mg/dL (<0.1-1.0); TOTAL PROTEIN 6.7 g/dL (6.4-8.2)
[2020-12-07 01:00] VITALS: BP 137/68
[2020-12-07] MEDS ORDERED: XOPENEX0.63 MG/3 INH (01:40)
[2020-12-07] MEDS ORDERED: ELIQUIS5 MG PO (01:42)
[2020-12-07] MEDS ORDERED: MEXILETINE 150150 MG PO (01:44)
[2020-12-07] MEDS ORDERED: NITROSTAT0.4 M1 SL (01:45)
[2020-12-07] MEDS ORDERED: PREDNISONE 10 M10 MG PO (01:48)
[2020-12-07] MEDS ORDERED: PROAIR HFA8.5 GM INH (01:49)
[2020-12-07 04:52] VITALS: BP 135/72
[2020-12-07 08:00] VITALS: BP 133/68
[2020-12-07 11:30] VITALS: BP 154/83
[2020-12-07 16:45] VITALS: BP 113/68
--- NOTE | 2020-12-07 17:13 | NUR ---
patient resting in room with , on tele monitor, SLIV, bed alarm on, on 2 L o2 per NC, no complaints at this time, all belongings and call light within reach. Continue to monitor.
[2020-12-07 20:00] VITALS: BP 132/66
[2020-12-08 00:50] VITALS: BP 105/52
[2020-12-08 04:10] VITALS: BP 111/71
[2020-12-08 04:16] LABS: HEMATOCRIT 37.7 % (42.0-52.0); HEMOGLOBIN 13.1 gm/dL (14.0-18.0); MCH 33.1 pg (26.0-34.0); MCHC 34.7 g/dL (28.0-37.0); MCV 95.4 fL (80.0-100.0); MPV 7.9 fl. (7.2-11.1); RBC 3.96 mil/uL (4.50-6.00); RDW-CV 14.8 % (10.5-14.5); WBC 7.7 thou/uL (4.0-11.0)
[2020-12-08 04:28] LABS: CALCIUM 8.6 mg/dL (8.5-10.1); CREATININE 1.4 mg/dL (0.6-1.3); POTASSIUM 4.3 mmol/L (3.5-5.1)
[2020-12-08 08:00] VITALS: BP 112/58
[2020-12-08 12:00] VITALS: BP 102/55
[2020-12-08 20:00] VITALS: BP 112/64
[2020-12-08 23:46] VITALS: BP 102/53
[2020-12-09 04:32] VITALS: BP 93/59
[2020-12-09 04:32] LABS: CALCIUM 8.8 mg/dL (8.5-10.1); CREATININE 1.5 mg/dL (0.6-1.3); POTASSIUM 4.2 mmol/L (3.5-5.1)
[2020-12-09 04:37] LABS: HEMATOCRIT 37.2 % (42.0-52.0); HEMOGLOBIN 12.9 gm/dL (14.0-18.0); MCH 33.1 pg (26.0-34.0); MCHC 34.6 g/dL (28.0-37.0); MCV 95.7 fL (80.0-100.0); MPV 8.7 fl. (7.2-11.1); RBC 3.89 mil/uL (4.50-6.00); RDW-CV 15.2 % (10.5-14.5); WBC 7.6 thou/uL (4.0-11.0)
[2020-12-09 08:00] VITALS: BP 99/59
[2020-12-09] MEDS ORDERED: K-DUR10 MEQ PO (09:20)
[2020-12-09] MEDS ORDERED: LASIX 40 MG TAB40 M1 PO (09:20)
--- NOTE | 2020-12-09 10:36 | NUR ---
CM ASSESSMENT: PT A&O. PT RESIDES AT HOME WITH SPOUSE. PT USES A CANE FOR MOBILITY. PT USES A CPAP AT HOME. PT HAS 0 HX OF HH OR SNF. PLAN FOR THE PT TO D/C HOME TODAY WITH SELF-CARE. NO CM D/C PLANNING NEEDS ANTICIPATED. CM WILL REMAIN AVAILABLE TO ASSIST AND FOLLOW NEEDED.
[2020-12-09 12:06] VITALS: BP 93/59
--- NOTE | 2020-12-09 12:25 | NUR ---
patient resting in room waiting for ride. Dc papers and script info given and verbalized understanding. IV taken out, cardiac cath technician taken off. will be taken out by wheelchair to car. home meds given.
[2020-12-09 12:53] VITALS: BP 147/69
--- NOTE | 2020-12-09 15:16 | EKG ---
[place] [address] ELECTROCARDIOGRAM REPORT Name: MARBELLA TAPIA Room: [address] IN M.R.#: [id number] Admission: 12/06/20 Attend Phys: Jordon Castro, Discharge: 12/09/20 Date of : 40 Date of Service: 12/07/20 0022 Report #: [id number] THIS REPORT FOR: //name// [facility] Test Date: 2020-12-07 Test Time: 00:22:51 Pat Name: MARBELLA TAPIA Department: Room: [address] Gender: M Member Of Congress: TR : 1940 Requested By: Jordon Castro Order Number: [id number] Osvaldo MD: Luis De La Paz Measurements Intervals [place] Rate: 61 P: 226 AK: 88 QRS: 77 QRSD: 118 T: 61 QT: 470 QTc: 474 Interpretive Statements Sinus rhythm with sinus arrhythmia Short AK interval Nonspecific intraventricular conduction delay Borderline low voltage, extremity leads Compared to ECG 05/25/2019 18:06:41 Intraventricular conduction delay now present Supraventricular tachycardia no longer present Right-axis deviation no longer present ST (T wave) deviation no longer present Electronically Signed On 12-09-2020 15:16:18 CDT by Luis De La Paz [email or web address] <ELECTRONICALLY SIGNED> By: Luis De La Paz MD, [facility] 12/09/20 1516 002 Luis De La Paz MD, [facility] /EPI
--- NOTE | 2020-12-09 15:23 | EKG ---
[place] [address] ELECTROCARDIOGRAM REPORT Name: MARBELLA TAPIA Room: [address] IN M.R.#: [id number] Admission: 12/06/20 Attend Phys: Jordon Castro, Discharge: 12/09/20 Date of : 40 Date of Service: 12/08/20 0434 Report #: [id number] THIS REPORT FOR: //name// [facility] Test Date: 2020-12-08 Test Time: 04:34:57 Pat Name: MARBELLA TAPIA Department: Room: [address] Gender: M System Trainer: XAVIER : 1940 Requested By: Jordon Castro Order Number: [id number] Reading MD: Luis De La Paz Measurements Intervals [place] Rate: 64 P: 0 WI: 49 QRS: 79 QRSD: 133 T: 79 QT: 525 QTc: 542 Interpretive Statements Sinus bradycardia with first-degree AV block with occasional paced beats Nonspecific intraventricular conduction delay Borderline T abnormalities, lateral leads Compared to ECG 12/07/2020 00:22:51 T-wave abnormality now present Paced beats are noted Electronically Signed On 12-09-2020 15:22:43 CDT by Luis De La Paz [email or web address] <ELECTRONICALLY SIGNED> By: Luis De La Paz MD, [facility] 12/09/20 1522 0434 0434 Luis De La Paz MD, [facility] /EPI
--- NOTE | 2020-12-09 15:28 | EKG ---
[place] [address] ELECTROCARDIOGRAM REPORT Name: MARBELLA TAPIA Room: [address] IN M.R.#: [id number] Admission: 12/06/20 Attend Phys: Jordon Castro, Discharge: 12/09/20 Date of : 40 Date of Service: 12/09/20 0444 Report #: [id number] THIS REPORT FOR: //name// [facility] Test Date: 2020-12-09 Test Time: 04:44:45 Pat Name: MARBELLA TAPIA Department: Room: [address] Gender: M Aeroplane Pilot: XAVIER : 1940 Requested By: Sanchez Zeng Order Number: [id number] Reading MD: Luis De La Paz Measurements Intervals [place] Rate: 58 P: MD: QRS: 78 QRSD: 124 T: 76 QT: 459 QTc: 451 Interpretive Statements Atrial fibrillation Nonspecific intraventricular conduction delay Compared to ECG 05/25/2019 18:06:41 Intraventricular conduction delay now present Supraventricular tachycardia no longer present Right-axis deviation no longer present ST (T wave) deviation no longer present Electronically Signed On 12-09-2020 15:28:31 CDT by Luis De La Paz [email or web address] <ELECTRONICALLY SIGNED> By: Luis De La Paz MD, [facility] 12/09/20 1528 3 0444 Luis De La Paz MD, [facility] /EPI
--- NOTE | 2020-12-10 12:37 | CON ---
[address] [address] CONSULTATION Name: MARBELLA TAPIA Room: [address] IN .R.#: [id number] Admission: 12/06/20 Attend Phys: Jordon Castro MD Discharge: 12/09/20 Date of : 40 Report #: [id number] THIS REPORT FOR: cc: Mark Dozier MD, Samuel D. MD Liston, Michael J. MD [facility] ~ DOC #: [id number] cc: Mark Dozier MD, Luis De La Paz MD [facility] Sanchez Zeng MD DATE OF CONSULTATION: 12/07/2020 CARDIOLOGY CONSULTATION INDICATIONS: Chest pressure, shortness of breath, PND and tachycardia. HISTORY OF PRESENT ILLNESS: The patient is a very pleasant 80-year-old gentleman with a history of coronary artery disease. He has remote stenting to his left main and LAD. By noninvasive studies, he has evidence of prior anteroapical infarct. He has an ischemic cardiomyopathy for which he is on medication. Ejection fraction has been in the range of 35-45% on noninvasive studies. He is status post ICD placement remotely. He does have a remote history of ventricular tachyarrhythmias as well as atrial fibrillation. He is on a combination of amiodarone and mexiletine, which has been suppressing any arrhythmia. Yesterday evening at approximately 8:00, he began to feel a fullness in his chest. He was feeling weak and short of breath at the time. He went into his house and was checking his O2 saturations, which were fine. He noted his pulse to be between 130 and 160 on his O2 sat monitor. He then checked his blood pressure. His blood pressure was fine, but again the pulse was elevated at approximately 150. The patient presented to the emergency room for further evaluation. By the time he arrived to the emergency room, his tachycardia had resolved. Here in the hospital overnight, he has had some episodes that appear to be atrial fibrillation as well as sinus rhythm with PACs. Initial troponin was unremarkable. EKG showed sinus rhythm with frequent PACs and no ST segment deviation. At the time of interview, he was comfortable. Repeat troponin is pending. PAST MEDICAL HISTORY: 1. Coronary artery disease with percutaneous coronary intervention as outlined above. 2. Ischemic cardiomyopathy. 3. Paroxysmal atrial fibrillation. 4. [place]oxys[place] [address] CONSULTATION Name: MARBELLA TAPIA Room: [address]#: [id number] Admission: 12/06/20 Attend Phys: Jordon Castro MD Discharge: 12/09/20 Date of : 40 Report #: [id number] 5. Hypertension. 6. Dyslipidemia. 7. History of tobacco use. 8. Steroid-dependent COPD. 9. History of ICD placement for primary prevention. ALLERGIES: AMOXICILLIN. CURRENT MEDICATIONS: Amiodarone 200 mg daily, Eliquis 5 mg b.i.d., Bevespi Aerosphere inhaler 2 puffs b.i.d., Plavix 75 mg daily, Xopenex inhaler q.6 hours p.r.n., losartan 50 mg p.o. daily, metoprolol XL 50 mg half a tablet daily, mexiletine 150 mg t.i.d., Nitrostat sublingual p.r.n., prednisone 10 mg p.o. daily and Flomax 0.4 mg p.o. daily. FAMILY HISTORY: Positive for heart disease. SOCIAL HISTORY: Tobacco history, the patient quit smoking remotely, he has a 39-[id number] use history. He quit smoking in 2011. He drinks a single drink daily. REVIEW OF SYSTEMS: Positive for cough productive of creamy sputum. He has dyspnea on exertion. He reports orthopnea and PND lately. He has bilateral knee pain and joint discomfort. Otherwise, 14-point review of systems was unremarkable. PHYSICAL EXAMINATION: VITAL SIGNS: Stable, blood pressure 133/68, pulse is 67 and regular. GENERAL: This is a pleasant elderly gentleman in no distress. Mood and affect appropriate. HEENT: Extraocular muscles intact. Rhinophyma noted. Mucous membranes are moist. NECK: Examination of the neck shows no jugular venous distention. CHEST: Examination of the chest reveals diffusely diminished breath sounds throughout with slight expiratory wheezes. CARDIAC: Exam reveals a slightly irregular rhythm without gallop or murmur. ABDOMEN: Examination of the abdomen reveals normal bowel sounds. Abdomen is soft and nontender. EXTREMITIES: Examination of the extremities show no edema. SKIN: Warm and dry. DIAGNOSTIC DATA: A 12-lead EKG shows sinus rhythm with premature atrial contractions. Chest x-ray shows cardiomegaly, but no acute pulmonary venous congestion. [address] [address] CONSULTATION Name: MARBELLA TAPIA: [address] IN [facility].#: [id number] Admission: 12/06/20 Attend Phys: Jordon Castro MD Discharge: 12/09/20 Date of : 40 Report #: [id number] LABORATORY DATA: Labs are reviewed. Sodium 141, potassium 4.3, chloride 107, bicarbonate 25, BUN 19, creatinine 1.4 and serum glucose 117. LFTs are within normal limits. Troponin less than 0.06 on arrival. Followup troponin is pending. White blood cell count 8.5, hemoglobin 12.8, MCV 96 and platelet count 209,000. IMPRESSION AND RECOMMENDATIONS: 1. Episode last night of tachycardia that could represent a recurrence of atrial fibrillation. I am re-bolus him with amiodarone and increasing his dose to 400 mg daily at this time. Continue mexiletine at current dose. The patient is chronically anticoagulated and having no bleeding problems. 2. Coronary artery disease, presently appears stable. He is not having symptoms to suggest acute coronary syndrome. I have a repeat troponin pending at this time. 3. Ischemic cardiomyopathy. The patient has symptoms to suggest possible acute exacerbation of chronic heart failure. He is having PND and orthopnea. I will give a bolus of IV Lasix at this time. The patient would likely benefit from a low-dose daily diuretic. 4. Status post ICD placement. No discharges from the defibrillator. Continue remote and inpatient interrogation as scheduled. 5. History of ventricular tachyarrhythmias. The patient has had no recent recurrence. He is on a combination of mexiletine and amiodarone, which I will continue. 6. Chronic obstructive pulmonary disease. The patient is steroid dependent and appears relatively stable at this time. 7. Chronic renal insufficiency, appears stable. We will check a.m. labs after diuresis. 8. Hypercoagulable state due to atrial fibrillation. The patient is anticoagulated with Eliquis and having no bleeding problems. 9. Acute on chronic systolic heart failure. Giving IV Lasix for symptomatic relief at this time. MD NANCY Li/NBA <ELECTRONICALLY SIGNED> By: Sanchez Zeng MD, [facility] 12/10/20 1237 1315 [facility] System[facility] Zeng MD, [facility] /nt
== END 2020-12-09 13:10 | disposition home or self-care (01) | DRG 308 ==
LOC: M.2W 22:20 → M.PRE 23:14 → M.2W 12-09 13:10
PROVIDERS: Internal Medicine; ADMIT Internal Medicine; ATTEND Internal Medicine
PROC: 4B02XTZ Measurement of Cardiac Defibrillator, External Approach (ICD-10-PCS; principal; 2020-12-07)
DX: I48.19 Other persistent atrial fibrillation (principal); I50.43 Acute on chronic combined systolic (congestive) and diastolic (congestive) heart failure; I13.0 Hypertensive heart and chronic kidney disease with heart failure and stage 1 through stage 4 chronic kidney disease, or unspecified chronic kidney disease; D68.69 Other thrombophilia; E78.5 Hyperlipidemia, unspecified; J44.9 Chronic obstructive pulmonary disease, unspecified; I25.5 Ischemic cardiomyopathy; N18.30 Chronic kidney disease, stage 3 unspecified; I25.10 Atherosclerotic heart disease of native coronary artery without angina pectoris; Z95.5 Presence of coronary angioplasty implant and graft; Z95.810 Presence of automatic (implantable) cardiac defibrillator